=== PATIENT | male | born 1970 | race Caucasian/White ===

== ENCOUNTER 2024-04-26 11:27 | Emergency (ER) | payer BC ==
[~2024-04-26] VITALS: Ht 185.4 cm; Wt 131.8 kg
[2024-04-26] MEDS: TETanus/Pertussis (Acell)/Diphther VAC/PF (Tdap-Adult) 0.5ml syringe IMVAC ONE (14:32)
[2024-04-26 14:40] LABS: PROTHROMBIN TIME 10.5 SECONDS (9.0-12.0)
[2024-04-26 14:43] LABS: ALANINE AMINOTRANSFERASE 45 U/L (12-78); ALBUMIN 3.3 G/DL (3.4-5.0); ALBUMIN/GLOBULIN RATIO 0.8 (1.1-1.5); ALKALINE PHOSPHATASE 89 IU/L (46-116); ANION GAP 8 (8-16); ASPARTATE AMINO TRANSFERASE 26 U/L (10-37); BILIRUBIN,TOTAL 0.5 MG/DL (0.1-1.0); BLOOD UREA NITROGEN 14 MG/DL (7-18); CALCIUM 8.7 MG/DL (8.5-10.1); CHLORIDE 102 MMOL/L (99-107); CREATININE 1.08 MG/DL (0.60-1.10); GLUCOSE 116 MG/DL (70-104); POTASSIUM 4.2 MMOL/L (3.5-5.1); SODIUM 137 MMOL/L (135-145); TOTAL CARBON DIOXIDE 27.3 MMOL/L (24-32); TOTAL PROTEIN 7.4 G/DL (6.4-8.2); eCRCL 87 ML/MIN; eGFR 71 ML/MIN
[2024-04-26 14:45] LABS: BASOPHILS # (AUTO) 0.1 X10'3 (0-0.2); BASOPHILS % (AUTO) 0.8 % (0-1); EOSINOPHILS # (AUTO) 0.1 X10'3 (0-0.9); EOSINOPHILS % (AUTO) 1.4 % (0-6); HEMATOCRIT 43.8 % (42.0-52.0); HEMOGLOBIN 14.8 g/dl (14.0-17.9); LYMPHOCYTES % (AUTO) 22.5 % (21-51); MEAN CORPUSCULAR HEMOGLOBIN 28.6 PG (27.0-31.0); MEAN CORPUSCULAR HGB CONC 33.9 g/dL (33.0-36.5); MEAN CORPUSCULAR VOLUME 84.3 FL (78-98); MONOCYTES # (AUTO) 0.8 X10'3 (0-0.9); MONOCYTES % (AUTO) 9.6 % (2-12); NEUTROPHILS # (AUTO) 5.7 X10'3 (1.8-7.7); NEUTROPHILS % (AUTO) 65.7 % (42-75); PLATELET COUNT 212 X10'3 (140-440); RED CELL DISTRIBUTION WIDTH 14.6 % (11.5-14.5); WHITE BLOOD COUNT 8.7 X10'3 (4.5-11.0)
[2024-04-26] MEDS: ondansetron/PF 4mg/2ml inj IV ONE (14:51)
[2024-04-26] MEDS: HYDROmorphone 1 mg/ml syringe IV ONE (14:52)
[2024-04-26 15:42] VITALS: BP 125/57; PULSE 72; RESP 16; O2SAT 93
[2024-04-26 16:25] VITALS: TEMP 97.8
== END 2024-04-26 16:28 | disposition admitted as inpatient to this hospital (09) ==
LOC: ER 11:27
DX: S22.029A Unspecified fracture of second thoracic vertebra, initial encounter for closed fracture (principal); S22.31XA Fracture of one rib, right side, initial encounter for closed fracture; S60.512A Abrasion of left hand, initial encounter; R41.0 Disorientation, unspecified; V89.2XXA Person injured in unspecified motor-vehicle accident, traffic, initial encounter; Y93.89 Activity, other specified; Y92.89 Other specified places as the place of occurrence of the external cause; Y99.8 Other external cause status
CPT/HCPCS: 36415; 70450; 71045; 72125; 72128; 73130; 80053; 85025; 85610; 90471; 90715; 96374; 96375; 99285; J1171; J2405